=== PATIENT | female | born 1980 | race African-American/Black ===

== ENCOUNTER 2023-07-26 10:26 | Emergency (ER) | payer MEDICAID ==
[~2023-07-26] VITALS: Ht 165.1 cm; Wt 73.5 kg
[2023-07-26 10:31] VITALS: O2SAT 99
[2023-07-26] MEDS ORDERED: IBUPROFEN 800 MG TABLET PO ONE (11:00)
[2023-07-26] MEDS ORDERED: IBUPROFEN 800 MG TABLET ONE (11:05)
[2023-07-26 11:39] LABS: *URINE HCG, QUAL NEGATIVE (NEGATIVE)
[2023-07-26] MEDS ORDERED: IBUP-1957 PO (12:07)
== END 2023-07-26 12:21 | disposition home or self-care (01) ==
LOC: ER 10:26
DX: M54.16 Radiculopathy, lumbar region (principal); M72.2 Plantar fascial fibromatosis; M20.11 Hallux valgus (acquired), right foot; K21.9 Gastro-esophageal reflux disease without esophagitis; Z79.1 Long term (current) use of non-steroidal anti-inflammatories (NSAID)
CPT/HCPCS: 72131; 73630; 84703; A4663